=== PATIENT | male | born 1995 ===

== ENCOUNTER 2017-08-26 17:16 | Emergency (ER) | payer BC, MEDICAID ==
[2017-08-26 17:27] VITALS: BP 128/58; PULSE 66; RESP 16; TEMP 97.8; O2SAT 100
[2017-08-26] MEDS ORDERED: Lidocaine 2% Inj (20ml) INFIL ONE (18:11)
--- NOTE | 2017-08-26 18:23 | ED PDOC ---
Upper Extremity Pain/Injury Time Seen by Provider: 08/26/17 18:05 Chief Complaint (Nursing): Abnormal Skin Integrity Chief Complaint (Provider): Abnormal Skin Integrity History Per: Patient History/Exam Limitations: no limitations Onset/Duration Of Symptoms: Days (x1 month) Current Symptoms Are (Timing): Still Present Additional Complaint(s): Brennan Turner is a 22 year old male who presents to the ED due to swelling of his left axilla x1 month. Patient was treated for impetigo a month ago when he presented with multiple small lesions on left axilla. Patient took antibiotics until all other lesions resolved with scarring, but noticed a solitary persistent lesion. PMD: Non-[facility] Provider Past Medical History Reviewed: Historical Data, Nursing Documentation, Vital Signs Vital Signs: Last Vital Signs Temp 97.8 F 08/26/17 17:23 Pulse 66 08/26/17 17:23 Resp 16 08/26/17 17:23 BP 128/58 L 08/26/17 17:23 Pulse Ox 100 08/26/17 17:23 - Family History Family History: States: Unknown Family Hx - Home Medications Home Medications: Ambulatory Orders Medication Instructions Recorded Acetaminophen with Codeine 1 tab PO Q4 PRN #10 tab 03/07/15 [Tylenol with Codeine No. 3 300 mg-30 mg] Naproxen 1 tab PO Q12 PRN #10 tab 08/26/17 Sulfamethoxazole/Trimethoprim 2 each PO BID #28 tablet 08/26/17 [Bactrim Ds Tablet] - Allergies Allergies/Adverse Reactions: Allergies Allergy/AdvReac Type Severity Reaction Status Date / Time No Known Allergies Allergy Verified 08/26/17 17:23 Review of Systems ROS Statement: Except As Marked, All Systems Reviewed And Found Negative Constitutional: Negative for: Fever, Chills Skin: Positive for: Lesions (Left axilla) Physical Exam - Reviewed Nursing Documentation Reviewed: Yes Vital Signs Reviewed: Yes - Physical Exam Appears: Positive for: Well, Non-toxic, No Acute Distress Head Exam: Positive for: ATRAUMATIC, NORMAL INSPECTION, NORMOCEPHALIC Skin: Positive for: Normal Color, Rash (2 cm fluctuant mass with mild erythema.) Eye Exam: Positive for: Normal appearance Neurologic/Psych: Positive for: Alert, Oriented - ECG O2 Sat by Pulse Oximetry: 100 (RA) Pulse Ox Interpretation: Normal Medical Decision Making Medical Decision Making: Time: 18:11 Initial Impression: Abscess Plan: --Incision & Drainage --Lidocaine 2% 1 ml INFIL --Reevaluation Time: 19:00 --Upon provider evaluation patient is medically stable, and requires no further treatment in the ED at this time. Patient will be discharged home with Rx for Bactrim. Counseling was provided and all questions were answered regarding diagnosis and need for follow up with PMD. There is agreement to discharge plan. Return if symptoms persist or worsen. Scribe Attestation: Documented by Daniel Caba, acting as a scribe for Kaia Painting PA-C Provider Scribe Attestation: All medical record entries made by the Scribe were at my direction and personally dictated by me. I have reviewed the chart and agree that the record accurately reflects my personal performance of the history, physical exam, medical decision making, and the department course for this patient. I have also personally directed, reviewed, and agree with the discharge instructions and disposition. Procedures - Incision and Drainage Site: Left axilla Blade Size: 10 I & D Procedure: betadine prep (Lidocaine 1% used) Progress: Time: 18:45 --Consent obtained prior to procedure. --Moderate drainage. Disposition - Clinical Impression Clinical Impression: Abscess - Patient ED Disposition Is Patient to be Admitted: No Counseled Patient/Family Regarding: Diagnosis, Need For Followup, Rx Given - Disposition Referrals: [facility] [Outside] Disposition: Routine/Home Disposition Time: 19:00 Condition: FAIR Additional Instructions: F/U WITH ED/ PMD IN 2 DAYS FOR RE-EVALUATION OF ABSCESS Prescriptions: Sulfamethoxazole/Trimethoprim [Bactrim Ds Tablet] 2 each PO BID #28 tablet Instructions: Abscess (ED) Forms: [employer] (Albanian), [facility] ED School/Work Excuse
[2017-08-26] MEDS ORDERED: Lidocaine 1% Inj (20ml) SC ONE (18:39)
== END 2017-08-26 19:16 | disposition home or self-care (01) ==
LOC: H.ER 17:16
DX: L02.412 Cutaneous abscess of left axilla (principal)

== ENCOUNTER 2017-08-29 15:50 | Emergency (ER) | payer BC ==
[2017-08-29 16:18] VITALS: BP 116/39; PULSE 60; RESP 16; TEMP 98.4; O2SAT 100
--- NOTE | 2017-08-29 16:58 | ED PDOC ---
HPI: Wound Care - HPI Time Seen by Provider: 08/29/17 16:50 Chief Complaint (Nursing): Wound Check Chief Complaint (Provider): Wound Check History Per: Patient Exam Limitations: no limitations Onset/Duration Of Symptoms: Days (x 3) Current Symptoms Are (Timing): Still Present Additional Complaint(s): Brennan is a 22 y/o male presenting to the ED for a wound check after an I&D done here 3 days ago on his left axilla. He reports draining at home and has not changed the bandage. Denies having a fever or chills. He was given a prescription for antibiotics, but has not started taking them since he picked them up earlier today. He noticed the area was very painful this morning. PMD: non-[facility] doctor Past Medical History Reviewed: Historical Data, Nursing Documentation, Vital Signs Vital Signs: Last Vital Signs Temp 98.4 F 08/29/17 16:17 Pulse 60 08/29/17 16:17 Resp 16 08/29/17 16:17 BP 116/39 L 08/29/17 16:17 Pulse Ox 100 08/29/17 16:17 - Medical History PMH: No Chronic Diseases - Surgical History Surgical History: No Surg Hx - Family History Family History: States: Unknown Family Hx - Social History Current smoker - smoking cessation education provided: Yes Alcohol: Social - Home Medications Home Medications: Ambulatory Orders Medication Instructions Recorded Acetaminophen with Codeine 1 tab PO Q4 PRN #10 tab 03/07/15 [Tylenol with Codeine No. 3 300 mg-30 mg] Naproxen 1 tab PO Q12 PRN #10 tab 08/26/17 Sulfamethoxazole/Trimethoprim 2 each PO BID #28 tablet 08/26/17 [Bactrim Ds Tablet] - Allergies Allergies/Adverse Reactions: Allergies Allergy/AdvReac Type Severity Reaction Status Date / Time No Known Allergies Allergy Verified 08/26/17 17:23 Review of Systems ROS Statement: Except As Marked, All Systems Reviewed And Found Negative Constitutional: Negative for: Fever, Chills Musculoskeletal: Positive for: Other (abscess) Physical Exam - Reviewed Nursing Documentation Reviewed: Yes Vital Signs Reviewed: Yes - Physical Exam Appears: Positive for: Non-toxic, No Acute Distress Head Exam: Positive for: ATRAUMATIC, NORMAL INSPECTION, NORMOCEPHALIC Skin: Positive for: Normal Color (Left axilla abscess noted, packing in place. Tender to touch. No erythema, warmth or active drainage, no lymph node swelling , no arm swelling. ), Warm Neurologic/Psych: Positive for: Alert, Oriented - ECG O2 Sat by Pulse Oximetry: 100 (RA) Pulse Ox Interpretation: Normal Medical Decision Making Medical Decision Making: Time: 17:10 Initial Plan: --Patient is advised to apply warm compress to area, to adhere to prescription regimen and follow up with PMD. There is agreement to discharge plan. Return if symptoms persist or worsen. Scribe Attestation: Documented by Aisha Gordon, acting as a scribe for Lidia May PA-C Provider Scribe Attestation: All medical record entries made by the Scribe were at my direction and personally dictated by me. I have reviewed the chart and agree that the record accurately reflects my personal performance of the history, physical exam, medical decision making, and the department course for this patient. I have also personally directed, reviewed, and agree with the discharge instructions and disposition. Disposition - Clinical Impression Clinical Impression: Encounter for wound re-check - Patient ED Disposition Is Patient to be Admitted: No Counseled Patient/Family Regarding: Diagnosis, Need For Followup - Disposition Disposition: Routine/Home Disposition Time: 17:10 Condition: STABLE Additional Instructions: apply warm compress Instructions: Abscess (ED), Abscess Follow-up (ED) Forms: [employer] (Malay)
== END 2017-08-29 17:10 | disposition home or self-care (01) ==
LOC: H.ER 15:50
DX: Z48.00 Encounter for change or removal of nonsurgical wound dressing (principal)